=== PATIENT | male | born 1955 | race Caucasian/White ===

== ENCOUNTER → 2016-08-04 | Outpatient (CLI) | payer BC ==
[~2016-08-04] MED LIST: CARDIZEM CD 18180 MG PO; CARDIZEM SR 60M60 MG PO; CARTIA XT180 MG PO; ELIQUIS 5MG PO; NORCO 325 MG-51 TAB PO; PRADAXA 150MG150 MG PO; PRADAXA75 MG PO; TIKOSYN0.125 MG PO; TIKOSYN0.25 MG PO; ULTRAM 50MG TAB50 MG PO
== END ==
LOC: COL.LAB 10:56
DX: Z01.812 Encounter for preprocedural laboratory examination (principal); M25.851 Other specified joint disorders, right hip

== ENCOUNTER 2016-08-06 12:58 | Inpatient (IN) | payer BC ==
[~2016-08-06] VITALS: Ht 180.3 cm; Wt 168.0 kg
[~2016-08-06 12:58] MED LIST changes: -CARTIA XT180 MG PO; -ELIQUIS 5MG PO; -NORCO 325 MG-51 TAB PO; -ULTRAM 50MG TAB50 MG PO
[2016-08-06] MEDS ORDERED: CARTIA XT180 MG PO (13:42)
[2016-08-06] MEDS ORDERED: ELIQUIS 5MG PO (13:43)
[2016-08-06] MEDS ORDERED: NORCO 325 MG-51 TAB PO (13:44)
[2016-08-06] MEDS ORDERED: ULTRAM 50MG TAB50 MG PO (13:44)
[2016-08-09] VITALS (12 sets, daily range): BP systolic 104–141; BP diastolic 52–80; PULSE 45–64; TEMP 97–98.6
[2016-08-10 03:08] VITALS: BP 133/88; PULSE 66; TEMP 97.6
[2016-08-10 05:44] LABS: HEMATOCRIT 40.6 % (42.0-52.0); HEMOGLOBIN 13.6 g/dl (13.5-18.0)
[2016-08-10 08:21] VITALS: BP 123/76; PULSE 68; TEMP 97.6
[2016-08-10 11:39] VITALS: BP 149/75; PULSE 71; TEMP 97.9
[2016-08-10 15:35] VITALS: BP 141/7; BP 141/76; PULSE 60; TEMP 98.5
[2016-08-10 19:54] VITALS: BP 127/67; PULSE 86; TEMP 97
[2016-08-11 00:40] VITALS: BP 119/66; PULSE 77; TEMP 97.8
[2016-08-11 04:58] VITALS: BP 119/55; PULSE 66; TEMP 97.5
[2016-08-11 07:21] LABS: HEMATOCRIT 39.3 % (42.0-52.0); HEMOGLOBIN 12.7 g/dl (13.5-18.0)
[2016-08-11 08:20] VITALS: BP 131/60; PULSE 56; TEMP 97.2
== END 2016-08-11 11:30 | disposition home or self-care (01) | DRG 470 ==
LOC: JCC 08-09 05:17
PROVIDERS: Orthopaedic Surgery
PROC: 0SR90JA Replacement of Right Hip Joint with Synthetic Substitute, Uncemented, Open Approach (ICD-10-PCS; principal; 2016-08-09 09:55)
DX: M16.11 Unilateral primary osteoarthritis, right hip (principal); G47.33 Obstructive sleep apnea (adult) (pediatric); I48.91 Unspecified atrial fibrillation; Z96.642 Presence of left artificial hip joint
CPT/HCPCS: 99222; 99231-AI; A9284; C1713; C1776; J0690; J1100; J2250; J2274; J2704; J7120

== ENCOUNTER 2023-06-14 08:53 | Day surgery (SDC) | payer MEDICARE, OTHER ==
[~2023-06-14] VITALS: Ht 185.4 cm; Wt 168.0 kg
[~2023-06-14 08:53] MED LIST changes: +CARTIA XT180 MG PO; +ELIQUIS 5MG PO; +NORCO 325 MG-51 TAB PO; +ULTRAM 50MG TAB50 MG PO
[2023-06-14] MEDS ORDERED: NEURONTIN300 MG/CAP PO (09:44)
[2023-06-14] MEDS ORDERED: PRINIVIL10 MG PO (09:45)
[2023-06-14] MEDS ORDERED: LIPITOR 10MG10 MG PO (09:45)
[2023-06-14] MEDS ORDERED: LASIX 40MG TABL40 MG PO (09:45)
[2023-06-14] MEDS ORDERED: TIKOSYN0.5 MG PO (09:45)
[2023-06-14 11:05] VITALS: BP 138/75; PULSE 79; TEMP 98
[2023-06-14 11:20] VITALS: BP 141/80; PULSE 73
[2023-06-14 11:35] VITALS: BP 132/77; PULSE 72
[2023-06-14 12:08] VITALS: BP 132/81; PULSE 77; TEMP 97.3
--- NOTE | 2023-06-14 12:10 | NUR ---
0929 PT AMBULATORY TO BAY 5 WITH STEADY GAIT, BREATHING EVEN AND UNLABORED. PT IS ALERT AND ORIENTED. CONSENTS REVIEWED AND SIGNED BY PT. IV ESTABLISHED. LR INFUSING VIA GRAVITY. CALL LIGHT IN REACH. WARM BLANKEY PROVIDED.
--- NOTE | 2023-06-14 13:51 | NUR ---
1105: PATIENT TO BAY 5 PER CART FROM ENDO SUITE. AMBULATED FROM CART TO RECLINER X2 ASSIST. REPORT RECEIVED. ALERT AND ORIENTED X4. VSS. BREATHING EVEN AND UNLABORED. PATIENT REQUESTING MUFFIN AND WATER. DENIES ANY PAIN OR NAUSEA. DR. HAYES IN TO SPEAK WITH PATIENT AT THIS TIME. RESTING IN RECLINER. CALL LIGHT IN REACH. 1120: ALERT AND ORIENTED X4. TOLERATING MUFFIN AND WATER. DENIES ANY PAIN OR NAUSEA. VSS. WARM BLANKET PROVIDED. RESTING IN COT. CALL LIGHT IN REACH. 1135: ALERT AND ORIENTED X4. DENIES ANY PAIN OR NAUSEA. VSS. DISCHARGE EDUCATION COMPLETED. PATIENT STATED UNDERSTANDING. DISCHARGE PAPER WORK GIVEN TO PATIENT. IV DC'D AT THIS TIME. PATIENT DENIES ANY ASSISTANCE DRESSING. 1145: PATIENT OFF UNIT PER WHEELCHAIR AT THIS TIME. PATIENT DISCHARGED TO HOME WITH FRIEN PER PERSONAL VEHICLE.
== END 2023-06-14 11:45 | disposition home or self-care (01) ==
LOC: SDCO 08:53
DX: Z12.11 Encounter for screening for malignant neoplasm of colon (principal); K64.0 First degree hemorrhoids; D12.2 Benign neoplasm of ascending colon; G47.33 Obstructive sleep apnea (adult) (pediatric); Z87.891 Personal history of nicotine dependence
CPT/HCPCS: J2704; J7120